=== PATIENT | male | born 1950 | race Asian ===

== ENCOUNTER 2017-08-16 18:57 | Emergency (ER) | payer SELFPAY ==
[2017-08-16 19:21] VITALS: BP 125/83; PULSE 80; TEMP 97.9; BMI 28.6
--- NOTE | 2017-08-16 21:07 | PDOC ---
History of Present Illness - General Chief Complaint: RX Refill Stated Complaint: BLOOD SUGAR Time Seen by Provider: 08/16/17 20:45 History Source: Patient Exam Limitations: No Limitations - History of Present Illness Initial Comments: 08/16/17 20:59 This 66-year-old male with past medical history of diabetes, CAD, hypertension hyperlipidemia who presents emergency departments for medication refill. Patient is recently in this country from [place] and was given a blister pack a medication prior to leaving has 3 days of medication left. Patient is requesting additional medication until he is able to be evaluated by his primary doctor. Patient states will be seeing Dr. Rayo for continued care. Patient denies all complaints at this time. Past History - Past Medical History Home Medications: Ambulatory Orders Amlodipine Besylate [Norvasc -] 5 mg PO DAILY #30 tablet 08/16/17 Atenolol [Tenormin -] 50 mg PO DAILY #30 tablet 08/16/17 Clopidogrel Bisulfate [Plavix -] 75 mg PO DAILY #30 tablet 08/16/17 Insulin (Novolog) [Novolog] 20 units SQ ACDIN #1 vial 08/16/17 Insulin (Novolog) [Novolog] 25 units SQ AM #1 vial 08/16/17 Losartan Potassium 25 mg PO DAILY #30 tablet 08/16/17 Pantoprazole Sodium 40 mg PO DAILY #30 tablet. 08/16/17 Rosuvastatin [Crestor -] 10 mg PO DAILY #30 tablet 08/16/17 Syrge-Ndl,Ins 0.3 ml Half Dong [Insulin Syringe] 1 each MC BID #60 disp.syrin metFORMIN HCL [Metformin HCl] 500 mg PO BID #60 tablet 08/16/17 - Suicide/Smoking/Psychosocial Hx Smoking History: Never smoked Have you smoked in the past 12 months: No Information on smoking cessation initiated: No Hx Alcohol Use: No Drug/Substance Use Hx: No Review of Systems - Review of Systems Able to Perform ROS?: Yes Is the patient limited German proficient: No All Other Systems: Reviewed and Negative *Physical Exam - Vital Signs Last Vital Signs Temp Pulse Resp BP Pulse Ox 97.9 F 80 18 125/83 98 08/16/17 19:13 08/16/17 19:13 08/16/17 19:13 08/16/17 19:13 08/16/17 19:13 - Physical Exam General Appearance: Yes: Appropriately Dressed. No: Apparent Distress HEENT: positive: Normal ENT Inspection Neck: positive: Trachea midline, Supple Respiratory/Chest: positive: Lungs Clear, Normal Breath Sounds. negative: Respiratory Distress, Accessory Muscle Use Cardiovascular: positive: Regular Rhythm, Regular Rate. negative: Murmur Gastrointestinal/Abdominal: positive: Normal Bowel Sounds, Soft. negative: Tender Musculoskeletal: positive: Normal Inspection. negative: CVA Tenderness Extremity: positive: Normal Inspection Integumentary: positive: Normal Color, Dry, Warm Neurologic: positive: Alert, Normal Response Medical Decision Making - Medical Decision Making 08/16/17 20:59 A/P: 66-year-old male with CAD, hypertension, diabetes presents for med refills Patient is currently asymptomatic Patient presents with list of medications with generic names and dosages. I will refill the patient's medications and give a referral to Dr. Rojas is unable to secure an appointment with his primary doctor of choice Discharge home *DC/Admit/Observation/Transfer Diagnosis at time of Disposition: Encounter for medication refill - Discharge Dispostion Disposition: HOME Condition at time of disposition: Stable Decision to Admit order: No - Prescriptions Prescriptions: Amlodipine Besylate [Norvasc -] 5 mg PO DAILY #30 tablet Atenolol [Tenormin -] 50 mg PO DAILY #30 tablet Clopidogrel Bisulfate [Plavix -] 75 mg PO DAILY #30 tablet Insulin (Novolog) [Novolog] 25 units SQ AM #1 vial Insulin (Novolog) [Novolog] 20 units SQ ACDIN #1 vial Losartan Potassium 25 mg PO DAILY #30 tablet metFORMIN HCL [Metformin HCl] 500 mg PO BID #60 tablet Pantoprazole Sodium 40 mg PO DAILY #30 tablet. Rosuvastatin [Crestor -] 10 mg PO DAILY #30 tablet Syrge-Ndl,Ins 0.3 ml Half Dong [Insulin Syringe] 1 each MC BID #60 disp.syrin - Referrals Referrals: Ricardo Rojas MD [Staff Physician] - - Patient Instructions Additional Instructions: Make an appointment for primary doctor as soon as possible. Return to emergency department for any concerns. - Post Discharge Activity
== END 2017-08-16 21:11 | disposition home or self-care (01) ==
LOC: JERFT 18:57
DX: E11.9 Type 2 diabetes mellitus without complications (principal); Z79.84 Long term (current) use of oral hypoglycemic drugs; I25.10 Atherosclerotic heart disease of native coronary artery without angina pectoris; I10 Essential (primary) hypertension; E78.5 Hyperlipidemia, unspecified
CPT/HCPCS: 99281-25